=== PATIENT | female | born 1975 | race Caucasian/White ===

== ENCOUNTER 2022-01-28 11:22 | Emergency (ER) | payer BC, SELFPAY ==
--- NOTE | 2022-01-28 11:15 | RT.EKG_ITS ---
APPROVED REPORT Exam: Resting ECG Reason for Exam: palpitations Patient Location: E HR:77 bpm ECG Measurements Heart Rate 77 AXIS DE 150 P 51 QRSd 90 QRS 37 QT 402 T 33 QTc 456 Conclusion Sinus rhythm...normal P axis, V-rate 60- 99 no WPW, no brugada, no STEMI, non-diagnostic EKG I have reviewed and interpreted ECG and agree with software generated interpretation.
[2022-01-28 11:31] VITALS: BP 121/79; PULSE 80; RESP 18; TEMP 36.2; O2SAT 99
--- NOTE | 2022-01-28 11:45 | DI.RAD_ITS ---
Exam(s) XR PORTABLE CHEST AP EXAM: XR PORTABLE CHEST AP CLINICAL HISTORY: palpitations, COVID + TECHNIQUE: 2D digital imaging was performed. COMPARISON: No exams were available for comparison FINDINGS: LUNGS: Clear. No pleural abnormality seen. HEART: Normal. AORTA: Normal. BONES: Unremarkable for age. Soft tissues: Unremarkable. IMPRESSION: No acute findings. DATA REPOSITORY: RADIATION DOSE DELIVERED:
--- NOTE | 2022-01-28 11:50 | ED.GENADUL_ITS ---
Discharge Plan Disposition Patient Disposition: HOME Condition: Stable Discharge Details Clinical Impression: COVID, Hypokalemia, Heart palpitations Primary Care Provider: Isamar,Local ED Provider: Anusha Trammell Home Meds and New Rx's Prescriptions: New ondansetron 4 mg tablet,disintegrating 4 mg PO Q6H PRN (Reason: nausea and vomiting) Qty: 10 0RF potassium chloride 20 mEq tablet extended release 20 meq PO DAILY Qty: 5 0RF Discharge Instructions Instructions: Hypokalemia (ED), COVID-19 (Coronavirus Disease 2019) (ED) Additional Instructions: Your evaluation here is concerning for low potassium. I am worried that some of your symptoms may be associated with the Paxlovid given time they began. Please hold your last dose. Encourage hydration. Zofran as needed for any recurrent nausea. Please continue with the supplemental potassium. Take with food. Please follow up with primary care next week once home. If you develop increased shortness of breath, difficulty breathing, chest pain or other new/worsening symptoms please seek care urgently once again. Please continue to quarantine. Discharge Data Discharge Date/Time-TO BE ENTERED AT DEPARTURE: 01/28/22 14:56 Medical Decision Making Patient is a pleasant 46-year-old female, young daughter at bedside, presenting today with chief complaint of palpitations, epigastric discomfort and general feeling of unwell in the setting of known COVID-19. She states that she was started on Paxlovid the following day, last dose was last evening. Patient has breast cancer, not currently 7ndergoing treatment. Patient typically resides in [place], she denies other PMH. She states that after starting the Paxlovid, she started to have bad taste in her mouth and feeling of her jaw being, clenched. She states that she has had decreased PO intake secondary to the bad taste. She reports that shortly after starting the medication, she began having palpitations, epigastric discomfort, difficulty sleepig and general malaise. She denies fevers/chills. Endorses SOB, particularly with palpitations. Symptoms are intermittent with no idenfitiable trigger/improving factor. On exam, patient appears anxious but nontoxic. She appears dry. Lungs are clear, normal cardiac exam. Abdomen benign. No calf pain or swelling. DDx includes elctrolyte abnormality, adverse reaction to Paxlovid, PE, dehydration, worsening COVID vs. other. Will hydrate the patient, obttain baseline labs and CXR. ECg obtained and reviewed by Dr. Garcias. No dysrythmia. No ischemice changes, NSR. K low at 2.9. No significant ECG changes to go with hypokalemia. Will replenish PO and IV. FINDINGS: LUNGS: Clear. No pleural abnormality seen. HEART: Normal. AORTA: Normal. BONES: Unremarkable for age.? Soft tissues: Unremarkable. IMPRESSION: No acute? findings. Labs otherwise unremardable with normal d-dimer. Advised symptoms likely associated with hypokalemia and COVID. She has been fairly asymptomatic since being here. We discussed supportive care. As these symptoms came on after she began Paxlovid, she will stop the medication. Will conitiue with hydration, supportive care. Strict return precautions given. Advised f/u with PCP. All of her quesitons and concerns were addressed, she is in agrreement with this plan. HPI General Date/Time Provider Initiated Documentation: 01/28/22 11:50 . Limitations to Documentation: no limitations . Information obtained by: patient and RN notes reviewed . History of Present Illness 46 year old F presents to the emergency department with the chief complaint of palpitations, general malaise, fatigue, SOB in setting of COVID +, described as moderate, with intensity rated at 5. Quality is described as aching (general body aches), Patient started experiencing this day(s) and it has been intermittent. No relieving factors improve symptom(s), No exacerbating factors reported . Patient notes cough, fever/chills, loss of appetite, malaise and shortness of breath; denies chest pain (palpitations), rash, syncope and weakness. Patient did receive the following treatments prior to arrival, other (on Paxlovid) Related Data Home Medications Medication Instructions Recorded Confirmed ondansetron 4 mg disintegrating 4 mg PO Q6H PRN nausea and 01/28/22 tablet vomiting #10 tabs potassium chloride 20 mEq 20 meq PO DAILY #5 tabs 01/28/22 tablet,extended release Previous Rx's Medication Instructions Recorded ondansetron 4 mg disintegrating 4 mg PO Q6H PRN nausea and 01/28/22 tablet vomiting #10 tabs potassium chloride 20 mEq 20 meq PO DAILY #5 tabs 01/28/22 tablet,extended release Allergies Allergy/AdvReac Type Severity Reaction Status Date / Time No Known Allergies Allergy Unverified 01/28/22 11:39 General Stated Complaint: Palpitatns AGA: 2 Review of Systems Constitutional Constitutional: Reports as per HPI and Denies headache(s) Eyes Eyes: Denies change in vision ENT Ears, Nose, Mouth, and Throat: Denies dizziness and Denies headache(s) Cardiovascular Cardiovascular: Reports as per HPI Respiratory Respiratory: Reports as per HPI, Denies pain on inspiration and Denies pain with cough Gastrointestinal Gastrointestinal: Reports as per HPI, Denies abdominal pain, Denies diarrhea, Denies nausea and Denies vomiting Musculoskeletal Musculoskeletal: Reports as per HPI and Denies back pain Integumentary/Breasts Skin/Breast: Reports as per HPI and Denies rash Neurologic Neurologic: Reports as per HPI, Denies dizziness and Denies headache(s) PFSH All Active Problems (Updated 01/28/22 @ 14:18 by JER Escalante) COVID (Acute) Hypokalemia (Acute) Heart palpitations (Acute) Social History Smoking/Tobacco Use Status: Never Smoking risk assessment performed?: Yes Alcohol Intake: never Drug use: Never Substance use type: does not use Do you feel safe at home: Yes Do you feel safe in your relationship?: Yes Exam Const General: cooperative, healthy appearing, comfortable, no acute distress and well developed Nutritional Appearance: average body habitus and well nourished Orientation: alert, awake and oriented x3 HENMT Head: normal to inspection Ears: hearing grossly normal bilaterally Mouth: mucous membranes dry (dry) Chest Chest: normal inspection of the chest, normal palpation of entire chest wall and no crepitus Resp Effort & Inspection: normal respiratory effort, able to speak in complete sentences and no respiratory distress Auscultation: clear to auscultation bilaterally, no rales, no rhonchi and no wheezes Cardio Rate: regular rate Rhythm: regular rhythm Heart Sounds: S1 normal and S2 normal GI Inspection: normal to inspection, no edema and non-distended Palpation: soft, no hepatosplenomegaly, not firm, no guarding, not rigid and nontender Auscultation: normal bowel sounds Back/Spine/Pelvis Back: no CVA tenderness Thoracic/Lumbar Spine: thoracic and lumbar spine normal to inspection Skin General skin exam: no rashes or lesions noted Trauma: no lacerations or abrasions Neuro General: patient alert, patient awake and patient oriented x3 Cognition: normal cognition Speech: speech normal Gait: normal gait Extrem General: normal to inspection, capillary refill normal, no pedal edema, no calf tenderness and normal gait Psych Appearance: grossly normal and well kempt Mental Status: mental status grossly normal Speech and Movement: speech and movement normal Course Vital Signs Vital signs: Vital Signs Temperature 36.2 C L 01/28/22 11:31 Pulse 80 01/28/22 11:31 Respiratory Rate 18 01/28/22 11:31 Blood Pressure 121/79 01/28/22 11:31 Pulse Oximetry 99 01/28/22 11:31 Temperature 36.2 C L 01/28/22 11:31 Temperature Source Skin 01/28/22 11:31 Pulse 80 01/28/22 11:31 Respiratory Rate 18 01/28/22 11:31 Blood Pressure 121/79 01/28/22 11:31 Blood Pressure Position Sitting 01/28/22 11:31 Pulse Oximetry 99 01/28/22 11:31 Oxygen Delivery Method Room Air 01/28/22 11:31 Oxygen Flow Rate 0 01/28/22 11:31 Pain Level 5 01/28/22 11:31
[2022-01-28 12:41] LABS: Abs Immature Grans 0.01 10^3/uL (0.0-0.06); Absolute Basophil Count 0.02 10^3/uL (0.0-0.2); Absolute Eosinophil Count 0.08 10^3/uL (0.0-0.7); Absolute Lymphocyte Count 2.23 10^3/uL (1.2-3.4); Absolute Monocyte Count 0.28 10^3/uL (0.1-0.8); Absolute Neutrophil Count 3.93 10^3/uL (1.2-6.7); Basophils % 0.3; Eosinophils % 1.2; HCT 38.8 % (36.0-46.0); HGB 12.9 g/dL (11.2-15.7); Immature Grans % 0.2; MCH 28.9 pg (27.0-33.0); MCHC 33.2 % (32.0-36.0); MCV 87 fL (80-95); MPV 9.6 fL (8.0-11.0); Monocytes % 4.3; Platelet Count 316 10^3/uL (130-400); RBC 4.46 10^6/uL (3.93-5.22); RDW 12.9 % (11.7-14.6); RDW-SD 41.3 fL; WBC 6.55 10^3/uL (4.4-10.8)
[2022-01-28 12:52] LABS: ALT 35 U/L (14-59); AST 20 U/L (15-37); Albumin 3.9 g/dL (3.4-5.0); Alkaline Phosphatase 61 U/L (46-116); Anion Gap 7.6 mmol/L (3-11); BUN 12 mg/dL (7-18); Bilirubin, Total 0.3 mg/dL (0.2-1.0); CO2 28.4 mmol/L (21.0-32.0); CREATININE 0.9 mg/dL (0.55-1.02); Calcium 8.5 mg/dL (8.5-10.1); Chloride 105 mmol/L (98-107); D-Dimer 142 ng/mlFEU (<500); Glucose 155 mg/dL (74-106); Magnesium 2.4 mg/dL (1.8-2.4); Sodium 141 mmol/L (136-145); TSH (W/Ref FT4) 1.06 uIU/mL (0.36-3.74); Total Protein 7.1 g/dL (6.4-8.2); Troponin I < 50 ng/L (<or=60)
[2022-01-28 12:53] LABS: Potassium 2.9 mmol/L (3.5-5.1)
[2022-01-28] MEDS: Potassium Chloride 20 MEQ TABCR 40 MEQ PO (13:27)
[2022-01-28] MEDS: POTASSIUM CHLORIDE 10 MEQ/100 ML BAG 100 MEQ IVPB (13:27)
[2022-01-28] MEDS: Ondansetron 4 MG/2 ML VIAL IVP (14:38)
[2022-01-28 14:48] VITALS: BP 128/84; PULSE 70; RESP 18; TEMP 37; O2SAT 98
== END 2022-01-28 14:56 | disposition home or self-care (01) ==
PROVIDERS: Emergency Provider Physician Assistant
DX: U07.1 COVID-19 (principal); R00.2 Palpitations; E87.6 Hypokalemia
CPT/HCPCS: 36415; 80053; 93005; 96365; 96375; 99284; 71045; 83735; 84443; 84484; 85025; 85379; 93010; J2405; J3480

== ENCOUNTER 2023-10-01 08:28 | Emergency (ER) | payer BC, SELFPAY ==
[2023-10-01 08:32] VITALS: BP 116/71; PULSE 77; RESP 17; TEMP 36.8; O2SAT 98
--- NOTE | 2023-10-01 08:45 | DI.RAD_ITS ---
Exam(s) XR KNEE LT 3V AP,LAT,DADA EXAM: XR KNEE LT 3V AP,LAT,DADA CLINICAL HISTORY: direct trauma from ski one week ago, pain. TECHNIQUE: 2D digital imaging was performed. Three views. COMPARISON: No exams were available for comparison FINDINGS: BONES: No acute fracture is present. No bony destructive lesion is seen. JOINTS: The knee is normally aligned. No joint effusion is seen. SOFT TISSUE: Normal. IMPRESSION: Normal radiographs of the left knee. DATA REPOSITORY: RADIATION DOSE DELIVERED:
--- NOTE | 2023-10-01 08:49 | ED.GENADUL_ITS ---
HPI General Date/Time Provider Initiated Documentation: 10/01/23 08:36 . HPI Narrative: 48-year-old female presents 1 week after sustaining direct blow to the left knee from ischemia. Pain intermittent crepitus, still able to walk without issue. Remote history of meniscal tear Related Data Home Medications Medication Instructions Recorded Confirmed bupropion HCl 300 mg 24 hr tablet, 300 mg PO DAILY 10/01/23 10/01/23 extended release (Wellbutrin XL) citalopram 20 mg tablet 60 mg PO DAILY 10/01/23 10/01/23 Allergies Allergy/AdvReac Type Severity Reaction Status Date / Time No Known Allergies Allergy Unverified 10/01/23 08:35 General Stated Complaint: Orthopedic AGA: 4 Review of Systems Narrative: Review of Systems Constitutional: negative Eyes: negative ENT: negative Cardiovascular: negative Respiratory: negative Gastrointestinal: negative : negative Musculoskeletal: Knee pain Skin: negative Neurologic: negative Psych: negative Exam Narrative Exam Narrative: Left lower extremity: Evidence of subacute ecchymosis infrapatellar region, mild joint effusion, no joint laxity, able to flex and extend completely with full strength, soft compartments warm well-perfused sensation and pulses intact Course Vital Signs Vital signs: Vital Signs Temperature 36.8 C 10/01/23 08:32 Pulse 77 10/01/23 08:32 Respiratory Rate 17 10/01/23 08:32 Blood Pressure 116/71 10/01/23 08:32 Pulse Oximetry 98 10/01/23 08:32 Temperature 36.8 C 10/01/23 08:32 Temperature Source Oral 10/01/23 08:32 Pulse 77 10/01/23 08:32 Respiratory Rate 17 10/01/23 08:32 Respiratory Effort Normal, Non-Labored 10/01/23 08:38 Blood Pressure 116/71 10/01/23 08:32 Blood Pressure Position Sitting 10/01/23 08:32 Pulse Oximetry 98 10/01/23 08:32 Oxygen Delivery Method Room Air 10/01/23 08:32 Oxygen Flow Rate 0 10/01/23 08:32 Medical Decision Making 40-year-old female presents 1 week after sustaining direct blow to left knee from ski, pain, subacute appearing ecchymosis, sensation of crepitus subjectively, on examination no laxity no crepitus, mild joint effusion, neurova scular exam of limb intact. Consider simple contusion versus meniscal injury versus patellar injury low suspicion for dislocation or fracture low suspicion for ACL or PCL tear low suspicion for lateral collateral ligament injury given stability on examination. Will obtain screening x-ray, trial of analgesia anti- inflammatory. If no improvement of symptomatology consider orthopedic follow-up for repeat examination and further imaging such as MRI. 9: 21 x-ray read as clear. Patient ambulatory range of motion intact. Neurovascularly intact. Consider contusion versus mild meniscal versus mild ligamentous injury. Home care instructions and return precautions given. Quality:SDOH Health Related Social Needs: No Data to Display [facility] All Active Problems (Updated 10/01/23 @ 09:22 by Sanjay Lew MD) Contusion of knee (Acute) COVID (Acute) Social History Smoking/Tobacco Use Status: Never Smoking risk assessment performed?: Yes Alcohol Intake: current Alcohol Intake frequency: holidays/special occasions only Alcohol type: wine Drug use: Never Substance use type: does not use Do you feel safe at home: Yes Do you feel safe in your relationship?: Yes Discharge Plan Disposition Patient Disposition: Home Condition: Improving Discharge Details Chief Complaint: Orthopedic Clinical Impression: Contusion of knee Primary Care Provider: Isamar,[facility] ED Provider: Sanjay Lew Home Meds and New Rx's Prescriptions: No Action citalopram 20 mg tablet 60 mg PO DAILY bupropion HCl [Wellbutrin XL] 300 mg tablet extended release 24 hr 300 mg PO DAILY Discharge Instructions Instructions: Contusion in Adults (ED) Additional Instructions: Continue with ice elevation ibuprofen and/or acetaminophen as needed for pain and swelling. Range of motion activity as tolerated. If you are not improving and/or have worsening symptoms please return for further assessment
[2023-10-01] MEDS: Ketorolac 15 MG/ML VIAL IM (08:59)
== END 2023-10-01 09:25 | disposition home or self-care (01) ==
PROVIDERS: Emergency Provider Emergency Medicine
DX: S80.02XA Contusion of left knee, initial encounter (principal); W00.0XXA Fall on same level due to ice and snow, initial encounter; Y93.24 Activity, cross country skiing; Y92.838 Other recreation area as the place of occurrence of the external cause
CPT/HCPCS: 73562; 96372; 99284; J1885